=== PATIENT | female | born 2005 | race Caucasian/White ===

== ENCOUNTER 2024-07-05 14:37 | Outpatient (OUT) | payer BC, SELFPAY ==
[2024-07-06 05:08] LABS: Hepatitis B Surf Ab Quant <3.5 mIU/mL (Immunity>10); Measles Antibodies, IgG >300.0 AU/mL (Immune >16.4); Mumps Abs, IgG <9.0 AU/mL (Immune >10.9); Rubella Antibodies, IgG 1.38 index (Immune >0.99); Varicella-Zoster V Ab, IgG Reactive (Non Reactive)
[2024-07-07 05:07] LABS: QuantiFERON-TB Gold Plus Negative (Negative)
== END 2024-07-05 14:38 | disposition home or self-care (01) ==
PROVIDERS: PCP Internal Medicine Gastroenterology; Visit Provider Internal Medicine Gastroenterology
DX: Z01.84 Encounter for antibody response examination (principal)
CPT/HCPCS: 36415; 86317; 86480; 86735; 86762; 86765; 86787